=== PATIENT | female | born 1995 | race African-American/Black ===

== ENCOUNTER 2020-04-07 00:34 | Emergency (ER) | payer OTHER ==
[~2020-04-07] VITALS: Ht 167.6 cm; Wt 61.2 kg
[~2020-04-07 00:34] MED LIST: BIRTH CONTROL PO; SERTRALINE HCL50 MG PO; ZOVIRAX 5% CR2 GM TP
[2020-04-07] MEDS ORDERED: VENTOLIN HFA 1818 GM INH (01:37)
[2020-04-07] MEDS ORDERED: PREDNISONE 20 M20 MG PO (01:37)
[2020-04-07 02:05] VITALS: BP 108/53
== END 2020-04-07 02:05 | disposition home or self-care (01) ==
LOC: ER 00:34
DX: J45.901 Unspecified asthma with (acute) exacerbation (principal); Z79.899 Other long term (current) drug therapy; Z88.0 Allergy status to penicillin

== ENCOUNTER 2020-07-27 12:09 | Emergency (ER) | payer OTHER ==
[~2020-07-27] VITALS: Ht 167.6 cm; Wt 59.4 kg
[~2020-07-27 12:09] MED LIST changes: +PREDNISONE 20 M20 MG PO; +VENTOLIN HFA 1818 GM INH
[2020-07-27 12:24] VITALS: BP 120/75
[2020-07-27] MEDS ORDERED: FLAGYL500 M1 PO ×2 (12:24→12:29)
== END 2020-07-27 12:27 | disposition home or self-care (01) ==
LOC: ER 12:09
DX: A59.8 Trichomoniasis of other sites (principal); J45.909 Unspecified asthma, uncomplicated; Z79.899 Other long term (current) drug therapy; Z88.0 Allergy status to penicillin

== ENCOUNTER 2020-08-03 07:52 | Emergency (ER) | payer OTHER ==
[~2020-08-03] VITALS: Ht 167.6 cm; Wt 59.4 kg
[~2020-08-03 07:52] MED LIST changes: +FLAGYL500 M1 PO
[2020-08-03 08:18] LABS: ABSOLUTE NEUTROPHILS 10.4 thou/uL (1.4-8.2); BASOPHILS 0.2 % (0.0-2.0); EOSINOPHILS 0.7 % (0.0-3.0); HEMATOCRIT 40.4 % (37.0-47.0); HEMOGLOBIN 12.7 gm/dL (12.0-15.0); LYMPHOCYTES 11.5 % (24.0-44.0); MCH 23.1 pg (26.0-34.0); MCHC 31.4 g/dL (28.0-37.0); MCV 73.5 fL (80.0-100.0); MONOCYTES 4.3 % (1.0-8.0); PLATELET COUNT 401 thou/uL (150-400); POLYS 83.3 % (36.0-66.0); RDW 17.8 % (10.5-14.5); WBC 12.5 thou/uL (4.0-11.0)
[2020-08-03 08:29] LABS: ANION GAP 8 mmol/L (7-16); BUN 16 mg/dL (7-18); CALCIUM 9.5 mg/dL (8.5-10.1); CHLORIDE 105 mmol/L (98-107); CO2 25 mmol/L (21-32); GLUCOSE 128 mg/dL (74-106); POTASSIUM 4.5 mmol/L (3.5-5.1); SODIUM 138 mmol/L (136-145)
[2020-08-03 08:34] LABS: ANISOCYTOSIS 1+; HYPOCHROMASIA 1+; MICROCYTES 1+
[2020-08-03 08:35] LABS: ALBUMIN 4.1 g/dL (3.4-5.0); DIRECT BILIRUBIN < 0.1 mg/dL (<0.1-0.2); LIPASE 100 U/L (73-393); SGOT 27 U/L (15-37); SGPT 25 U/L (14-59); TOTAL BILIRUBIN 0.2 mg/dL (0.2-1.0); TOTAL PROTEIN 8.3 g/dL (6.4-8.2)
[2020-08-03 08:38] LABS: URINE BILIRUBIN NEGATIVE (Negative); URINE BLOOD TRACE (Negative); URINE CLARITY CLEAR; URINE COLOR YELLOW; URINE GLUCOSE-RANDOM* NEGATIVE (Negative); URINE KETONES NEGATIVE (Negative); URINE LEUKOCYTES-REFLEX NEGATIVE (Negative); URINE NITRITE-REFLEX NEGATIVE (Negative); URINE PROTEIN (DIPSTICK) NEGATIVE (Negative); URINE SPECIFIC GRAVITY >= 1.030 (1.005-1.035); URINE UROBILINOGEN 0.2 E.U./dl (0.2-1.0)
[2020-08-03 09:07] VITALS: BP 109/73
[2020-08-03] MEDS ORDERED: BENTYL 10 MG CA10 MG PO (09:09)
[2020-08-03] MEDS ORDERED: ZOFRAN ODT4 MG PO (09:09)
[2020-08-03] MEDS ORDERED: COMPAZINE25 M1 RECTAL ×3 (11:59→12:06)
== END 2020-08-03 09:13 | disposition home or self-care (01) ==
LOC: ER 07:52
PROVIDERS: Emergency Medicine
DX: K52.9 Noninfective gastroenteritis and colitis, unspecified (principal); R11.2 Nausea with vomiting, unspecified; J45.909 Unspecified asthma, uncomplicated; F41.9 Anxiety disorder, unspecified; Z88.0 Allergy status to penicillin

== ENCOUNTER 2020-08-03 10:03 | Emergency (ER) | payer OTHER ==
[~2020-08-03] VITALS: Ht 167.6 cm; Wt 59.4 kg
[~2020-08-03 10:03] MED LIST changes: +BENTYL 10 MG CA10 MG PO; +ZOFRAN ODT4 MG PO
[2020-08-03] MEDS ORDERED: COMPAZINE25 M1 RECTAL ×3 (11:59→12:06)
[2020-08-03 12:17] VITALS: BP 122/67
== END 2020-08-03 12:19 | disposition home or self-care (01) ==
LOC: ER 10:03
DX: K52.9 Noninfective gastroenteritis and colitis, unspecified (principal); R11.2 Nausea with vomiting, unspecified; F41.9 Anxiety disorder, unspecified; J45.909 Unspecified asthma, uncomplicated; Z79.899 Other long term (current) drug therapy; Z88.0 Allergy status to penicillin

== ENCOUNTER 2020-09-27 20:46 | Emergency (ER) | payer OTHER ==
[~2020-09-27] VITALS: Ht 170.2 cm; Wt 64.9 kg
[~2020-09-27 20:46] MED LIST changes: +COMPAZINE25 M1 RECTAL
[2020-09-27 21:30] LABS: BASOPHILS 0.5 % (0.0-2.0); EOSINOPHILS 0.8 % (0.0-3.0); HEMATOCRIT 36.8 % (37.0-47.0); HEMOGLOBIN 11.7 gm/dL (12.0-15.0); LYMPHOCYTES 9.6 % (24.0-44.0); MCH 23.6 pg (26.0-34.0); MCHC 31.8 g/dL (28.0-37.0); MCV 74.2 fL (80.0-100.0); MONOCYTES 4.4 % (1.0-8.0); PLATELET COUNT 335 thou/uL (150-400); POLYS 84.7 % (36.0-66.0); RBC 4.96 mil/uL (4.20-5.00); RDW 15.8 % (10.5-14.5); WBC 8.2 thou/uL (4.0-11.0)
[2020-09-27 21:37] LABS: POTASSIUM 3.3 mmol/L (3.5-5.1)
[2020-09-27 21:43] LABS: ALBUMIN 3.8 g/dL (3.4-5.0); TOTAL BILIRUBIN 0.3 mg/dL (0.2-1.0); TOTAL PROTEIN 7.9 g/dL (6.4-8.2)
[2020-09-27] MEDS ORDERED: PREDNISONE 20 M20 MG PO (22:36)
[2020-09-27 22:47] VITALS: BP 107/63
== END 2020-09-27 22:47 | disposition home or self-care (01) ==
LOC: ER 20:46
PROVIDERS: Nurse Practitioner Family
DX: U07.1 COVID-19 (principal); J12.82 Pneumonia due to coronavirus disease 2019; J45.909 Unspecified asthma, uncomplicated; F41.9 Anxiety disorder, unspecified; Z88.0 Allergy status to penicillin